=== PATIENT | female | born 1975 | race African-American/Black ===

== ENCOUNTER 2016-12-10 04:17 | Emergency (ER) | payer OTHER ==
[~2016-12-10] VITALS: Ht 167.6 cm; Wt 102.1 kg
[~2016-12-10 04:17] MED LIST: CILOXAN 0.3% O1 DROP BOTH EYES; GLUCOTROL XL10 MG ORAL; HYDROCHLOROTHIA25 MG ORAL; LISINOPRIL10 MG ORAL; METFORMIN HCL500 M1 ORAL; NORCO 5-325 TA1 EACH ORAL; NORVASC10 MG ORAL; POLYTRIM OP SOL10 ML OPHTHALM; ZITHROMAX250 MG ORAL
[2016-12-10 04:30] VITALS: BP 130/83
--- NOTE | 2016-12-10 04:51 | Emergency Room Report ---
History of Present Illness General Chief Complaint: Back Pain-No Injury Source: Patient Present Illness HPI Patient present with several different complaints mainly complaining of reflux and chest pain Complains of left scapular pain as well She reports looking at her symptoms online and was concerned about cardiac pathology and presents for further eval Denies any short of breath she has a mild cough denies any vomiting or diarrhea Denies any fall or trauma Chest pain is burning sensation 12/18 midsternal Allergies: Coded Allergies: MORPHINE (Verified Allergy, Unknown, 02/14/11) Patient History Past Medical History: see triage record Pertinent Family History: none Last Menstrual Period: Nov Reviewed Nursing Documentation: PMH: Agreed, PSxH: Agreed Nursing Documentation-PMH Hx Hypertension: Yes Hx Diabetes: Yes Hx Gastrointestinal Problems: Yes - PANCREATITIS Review of Systems All Other Systems: negative except mentioned in HPI Physical Exam Vital Signs Date Time Temp Pulse Resp B/P Pulse Ox O2 Delivery O2 Flow Rate FiO2 12/10/16 04:24 98.1 70 16 119/85 98 Room Air Sp02 EP Interpretation: reviewed, normal General Appearance: well appearing, no apparent distress Head: normocephalic, atraumatic Eyes: bilateral eye EOMI, bilateral eye PERRL ENT: hearing grossly normal, normal pharynx, TMs + canals normal, uvula midline Neck: full range of motion, supple, no meningismus, no bony tend Respiratory: lungs clear, normal breath sounds, no rhonchi, no respiratory distress, no retraction, no accessory muscle use Cardiovascular #1: normal peripheral pulses, regular rate, rhythm, no edema, no gallop, no JVD, no murmur Gastrointestinal: normal bowel sounds, non tender, soft, no mass, no organomegaly, non-distended, no guarding, no hernia, no pulsatile mass, no rebound Genitourinary: no CVA tenderness Musculoskeletal: normal inspection Neurologic: oriented x3, responsive, 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, motor strength/ tone normal, sensory intact Psychiatric: mood/affect normal Skin: normal color, no rash, warm/dry, palpation normal Lymphatic: normal inspection, no adenopathy Medical Decision Making Diagnostic Impression: Primary Impression: Back pain Additional Impression: Chest pain ER Course Patient is a fairly complex patient with multiple differential to consideration including but not limited to cardiac cardiopulmonary and vascular emergencies Patient's EKG shows chronic findings including atrial enlargement No obvious ST elevation Baseline blood work or appropriate patient's lipase was very minimal elevation She has had previous pancreatitis At this time with the current evaluation Patient also resting comfortably without any acute distress Upon reevaluation complaining mainly of left shoulder blade pain which has improved and therefore stable for close outpatient followup Labs Test 12/10/16 04:51 White Blood Count 7.7 K/UL (4.8-10.8) Red Blood Count 4.64 M/UL (4.20-5.40) Hemoglobin 13.8 G/DL (12.0-16.0) Hematocrit 41.4 % (37.0-47.0) Mean Corpuscular Volume 89 FL (80-99) Mean Corpuscular Hemoglobin 29.7 PG (27.0-31.0) Mean Corpuscular Hemoglobin Concent 33.3 G/DL (32.0-36.0) Red Cell Distribution Width 12.1 % (11.6-14.8) Platelet Count 261 K/UL (150-450) Mean Platelet Volume 7.3 FL (6.5-10.1) Neutrophils (%) (Auto) 57.0 % (45.0-75.0) Lymphocytes (%) (Auto) 31.7 % (20.0-45.0) Monocytes (%) (Auto) 7.9 % (1.0-10.0) Eosinophils (%) (Auto) 2.7 % (0.0-3.0) Basophils (%) (Auto) 0.7 % (0.0-2.0) Sodium Level 137 mEQ/L (135-145) Potassium Level 4.1 mEQ/L (3.4-4.9) Chloride Level 97 mEQ/L (98-107) Carbon Dioxide Level 26 mEQ/L (20-30) Anion Gap 14 (5-15) Blood Urea Nitrogen 10 mg/dL (7-23) Creatinine 0.7 mg/dL (0.5-0.9) Estimat Glomerular Filtration Rate > 60 mL/min (>60) Glucose Level 168 mg/dL (74-106) Calcium Level 9.0 mg/dL (8.6-10.2) Total Bilirubin 0.3 mg/dL (0.0-1.2) Aspartate Amino Transf (AST/SGOT) 19 U/L (5-40) Alanine Aminotransferase (ALT/SGPT) 24 U/L (3-33) Alkaline Phosphatase 62 U/L (35-104) Total Protein 7.2 g/dL (6.6-8.7) Albumin 4.1 g/dL (3.5-5.2) Globulin 3.1 g/dL Albumin/Globulin Ratio 1.3 (1.0-2.7) Lipase 69 U/L (< 60) EKG Diagnostic Results Rate: normal Rhythm: NSR ST Segments: other - Left atrial enlargement nonspecific ST changes Rhythm Strip Diag. Results EP Interpretation: yes Rate: 77 Rhythm: NSR, no PVC's, no ectopy Chest X-Ray Diagnostic Results EP Interpretation: Yes Findings: no consolidation, no effusion, no pneumothorax Number of Views: 1 Last Vital Signs Date Time Temp Pulse Resp B/P Pulse Ox O2 Delivery O2 Flow Rate FiO2 12/10/16 04:24 98.1 70 16 119/85 98 Room Air Status: improved Disposition: HOME, SELF-CARE Condition: Improved Additional Instructions: Patient is provided with the discharge instructions notified to follow up with primary doctor in the next 2-3 days otherwise return to the er with any worsening symptoms. Please note that this report is being documented using [employer] technology. This can lead to erroneous entry secondary to incorrect interpretation by the dictating instrument. PADILLA PATEL D.O. Dec 10, 2016 04:51
[2016-12-10 05:13] LABS: BASOPHILS % (AUTO) 0.7 % (0.0-2.0); EOSINOPHILS % (AUTO) 2.7 % (0.0-3.0); LYMPHOCYTES % (AUTO) 31.7 % (20.0-45.0); MEAN CORPUSCULAR HEMOGLOBIN 29.7 PG (27.0-31.0); MEAN CORPUSCULAR HGB CONC 33.3 G/DL (32.0-36.0); MEAN CORPUSCULAR VOLUME 89 FL (80-99); MEAN PLATELET VOLUME 7.3 FL (6.5-10.1); MONOCYTES % (AUTO) 7.9 % (1.0-10.0); PLATELET COUNT 261 K/UL (150-450); RED BLOOD COUNT 4.64 M/UL (4.20-5.40); RED CELL DISTRIBUTION WIDTH 12.1 % (11.6-14.8); WHITE BLOOD COUNT 7.7 K/UL (4.8-10.8)
[2016-12-10 05:29] LABS: ALANINE AMINOTRANSFERASE 24 U/L (3-33); ALBUMIN/GLOBULIN RATIO 1.3 (1.0-2.7); ANION GAP 14 (5-15); ASPARTATE AMINO TRANSFERASE 19 U/L (5-40); CARBON DIOXIDE 26 mEQ/L (20-30); CHLORIDE 97 mEQ/L (98-107); CREATININE 0.7 mg/dL (0.5-0.9); GLOMERULAR FILTRATION RATE > 60 mL/min (>60); HEMOLYSIS 3; LIPASE 69 U/L (< 60); POTASSIUM 4.1 mEQ/L (3.4-4.9); SODIUM 137 mEQ/L (135-145); TOTAL PROTEIN 7.2 g/dL (6.6-8.7)
[2016-12-10 06:25] VITALS: BP 133/83
--- NOTE | 2016-12-10 10:52 | Diagnostic Imaging Report ---
Indication: Chest Pain Comparison: 10/15/15 A single view chest radiograph was obtained. Findings: Cardiomediastinal appearance is within normal limits for age. Pulmonary vascularity is appropriate. The diaphragmatic contour is smooth and costophrenic angles are sharp. No pleural effusions are identified. The bones are unremarkable. Impression: No acute findings
--- NOTE | 2016-12-11 14:02 | Cardiology Report ---
APPROVED REPORT EKG Measurement Heart [id number] Normal sinus rhythm Possible Left atrial enlargement Incomplete right bundle branch block Borderline ECG
== END 2016-12-10 06:25 | disposition home or self-care (01) ==
LOC: EMR 04:40
DX: R07.89 Other chest pain (principal); M54.9 Dorsalgia, unspecified; I10 Essential (primary) hypertension; E11.9 Type 2 diabetes mellitus without complications; Z88.6 Allergy status to analgesic agent
CPT/HCPCS: 36415; 71010; 80053; 83690; 85025; 93005; 99283

== ENCOUNTER 2018-01-26 18:25 | Emergency (ER) | payer OTHER ==
[~2018-01-26] VITALS: Ht 167.6 cm; Wt 108.0 kg
[2018-01-26] MEDS ORDERED: JANUVIA100 MG ORAL (19:00)
[2018-01-26 19:20] VITALS: BP 115/76
[2018-01-26 19:27] LABS: APPEARANCE,URINE CLEAR; BILIRUBIN, URINE NEGATIVE (NEGATIVE); COLOR,URINE PALE YELLOW; GLUCOSE, URINE (UA) NEGATIVE (NEGATIVE); KETONES,URINE NEGATIVE (NEGATIVE); LEUKOCYTE ESTERASE ,URINE NEGATIVE (NEGATIVE); NITRITE,URINE NEGATIVE (NEGATIVE); PH,URINE 6 (4.5-8.0); PROTEIN,URINE NEGATIVE (NEGATIVE); UROBILINOGEN,URINE NORMAL MG/DL (0.0-1.0)
[2018-01-26 20:00] LABS: HEMATOCRIT 39.4 % (37.0-47.0); HEMOGLOBIN 13.5 G/DL (12.0-16.0); LYMPHOCYTES % (AUTO) 38.5 % (20.0-45.0); MEAN CORPUSCULAR VOLUME 88 FL (80-99); MONOCYTES % (AUTO) 7.8 % (1.0-10.0); NEUTROPHILS % (AUTO) 49.7 % (45.0-75.0); PLATELET COUNT 251 K/UL (150-450); RED BLOOD COUNT 4.46 M/UL (4.20-5.40); RED CELL DISTRIBUTION WIDTH 11.7 % (11.6-14.8); WHITE BLOOD COUNT 7.3 K/UL (4.8-10.8)
[2018-01-26 20:13] LABS: ANION GAP 8 mmol/L (5-15); BLOOD UREA NITROGEN 13 mg/dL (7-18); CALCIUM 9.3 MG/DL (8.5-10.1); CARBON DIOXIDE 26 MMOL/L (21-32); CHLORIDE 101 MMOL/L (98-107); CREATININE 0.8 MG/DL (0.55-1.30); POTASSIUM 3.7 MMOL/L (3.5-5.1); SODIUM 135 MMOL/L (136-145)
[2018-01-26 20:17] LABS: ALANINE AMINOTRANSFERASE 31 U/L (12-78); ALKALINE PHOSPHATASE 72 U/L (46-116); ASPARTATE AMINO TRANSFERASE 16 U/L (15-37); BILIRUBIN,TOTAL 0.2 MG/DL (0.2-1.0)
--- NOTE | 2018-01-26 22:02 | Emergency Room Report ---
History of Present Illness General Chief Complaint: General Complaint Source: Patient Present Illness HPI This patient has multiple complaints. 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 She states then she later felt pain in her upper back. He denies recent illness. She denies cough or congestion. She denies fever or chills. She denies nausea or vomiting. She states that she occasionally gets pain in her right lower abdomen. She states it comes and goes. She currently does not have any pain. She states her urine also has had an unusual odor. She has no dysuria or hematuria. She is concerned she may have a urinary tract infection. She denies abnormal vaginal discharge. She has an appointment with her primary care physician for a physical and for her diabetes in the next week. She has no other complaints. Allergies: Coded Allergies: MORPHINE (Verified Allergy, Unknown, 02/14/11) Patient History Past Medical History: see triage record, DM, other - pancreatitis Social History: Denies: smoking, alcohol use, drug use Last Menstrual Period: 01/21/18 Reviewed Nursing Documentation: PMH: Agreed; PSxH: Agreed Nursing Documentation-PMH Hx Hypertension: Yes Hx Diabetes: Yes - DM2 Hx Gastrointestinal Problems: Yes - PANCREATITIS Review of Systems All Other Systems: negative except mentioned in HPI Physical Exam Vital Signs Date Time Temp Pulse Resp B/P (MAP) Pulse Ox O2 Delivery O2 Flow Rate FiO2 01/26/18 18:54 98.5 72 18 147/87 95 Room Air 98.4 Sp02 EP Interpretation: reviewed, normal General Appearance: no apparent distress, alert, GCS 15, non-toxic Head: normocephalic, atraumatic Eyes: bilateral eye normal inspection, bilateral eye PERRL ENT: hearing grossly normal, normal pharynx, no angioedema, normal voice Neck: full range of motion, supple/symm/no masses Respiratory: chest non-tender, lungs clear, normal breath sounds, speaking full sentences Cardiovascular #1: regular rate, rhythm, no edema Gastrointestinal: normal bowel sounds, non tender, soft, non-distended, no guarding, no rebound Rectal: deferred Musculoskeletal: back normal, gait/station normal, normal range of motion, non- tender Neurologic: alert, oriented x3, responsive, motor strength/tone normal, sensory intact, speech normal Psychiatric: judgement/insight normal, memory normal, mood/affect normal, no suicidal/homicidal ideation Skin: normal color, no rash, warm/dry, well hydrated Medical Decision Making Diagnostic Impression: Primary Impression: Chest pain ER Course This patient has nonspecific chest pain. Given the length of symptoms, this workup is very reassuring with negative cardiac enzymes, normal EKG, and normal chest x-ray. The patient is low risk and his symptoms are atypical for acute coronary syndrome. I have very low suspicion for PE, aortic dissection or pneumothorax based on history/physical, laboratory and radiologic workup. The patient also complained of some intermittent right sided pelvic pain. Therefore , I obtained a pelvic ultrasound. There is no significant findings. See official report. No evidence of urinary tract infection on urinalysis. The patient's abdominal exam is benign. Overall this patient's evaluation is unremarkable. I did not identify an emergency medical condition. The patient was given close return precautions and followup instructions. Laboratory Tests Test 01/26/18 19:00 01/26/18 19:30 Urine Color Pale yellow Urine Appearance Clear Urine pH 6 (4.5-8.0) Urine Specific [place] 1.015 (1.005-1.035) Urine Protein Negative (NEGATIVE) Urine Glucose (UA) Negative (NEGATIVE) Urine Ketones Negative (NEGATIVE) Urine Occult Blood 2+ (NEGATIVE) H Urine Nitrite Negative (NEGATIVE) Urine Bilirubin Negative (NEGATIVE) Urine Urobilinogen Normal MG/DL (0.0-1.0) Urine Leukocyte Esterase Negative (NEGATIVE) Urine RBC 2-4 /HPF (0 - 2) H Urine WBC 0-2 /HPF (0 - 2) Urine Squamous Epithelial Cells Few /LPF (NONE/OCC) Urine Bacteria Few /HPF (NONE) Urine HCG, Qualitative Negative (NEGATIVE) White Blood Count 7.3 K/UL (4.8-10.8) Red Blood Count 4.46 M/UL (4.20-5.40) Hemoglobin 13.5 G/DL (12.0-16.0) Hematocrit 39.4 % (37.0-47.0) Mean Corpuscular Volume 88 FL (80-99) Mean Corpuscular Hemoglobin 30.2 PG (27.0-31.0) Mean Corpuscular Hemoglobin Concent 34.2 G/DL (32.0-36.0) Red Cell Distribution Width 11.7 % (11.6-14.8) Platelet Count 251 K/UL (150-450) Mean Platelet Volume 6.9 FL (6.5-10.1) Neutrophils (%) (Auto) 49.7 % (45.0-75.0) Lymphocytes (%) (Auto) 38.5 % (20.0-45.0) Monocytes (%) (Auto) 7.8 % (1.0-10.0) Eosinophils (%) (Auto) 3.0 % (0.0-3.0) Basophils (%) (Auto) 1.0 % (0.0-2.0) Sodium Level 135 MMOL/L (136-145) L Potassium Level 3.7 MMOL/L (3.5-5.1) Chloride Level 101 MMOL/L (98-107) Carbon Dioxide Level 26 MMOL/L (21-32) Anion Gap 8 mmol/L (5-15) Blood Urea Nitrogen 13 mg/dL (7-18) Creatinine 0.8 MG/DL (0.55-1.30) Estimate Glomerular Filtration Rate > 60 mL/min (>60) Glucose Level 180 MG/DL (74-106) H Calcium Level 9.3 MG/DL (8.5-10.1) Total Bilirubin 0.2 MG/DL (0.2-1.0) Aspartate Amino Transferase (AST) 16 U/L (15-37) Alanine Aminotransferase (ALT) 31 U/L (12-78) Alkaline Phosphatase 72 U/L (46-116) Troponin I 0.000 ng/mL (0.000-0.056) Total Protein 8.1 G/DL (6.4-8.2) Albumin 4.0 G/DL (3.4-5.0) Globulin 4.1 g/dL Albumin/Globulin Ratio 1.0 (1.0-2.7) Lipase 142 U/L (73-393) EKG Diagnostic Results Rate: normal Rhythm: NSR ST Segments: no acute changes Rhythm Strip Diag. Results EP Interpretation: yes Rate: 70's Rhythm: NSR, no PVC's, no ectopy Chest X-Ray Diagnostic Results Chest X-Ray Diagnostic Results : Chest X-Ray Ordered: Yes # of Views/Limited/Complete: 1 View Indication: Chest Pain EP Interpretation: Yes Interpretation: no consolidation, no effusion, no pneumothorax, no acute cardiopulmonary disease Impression: No acute disease Electronically Signed by: Abigail CT/MRI/US Diagnostic Results CT/MRI/US Diagnostic Results : Imaging Test Ordered: US Pelvis Impression Small ovarian cysts. See official report. Last Vital Signs Date Time Temp Pulse Resp B/P (MAP) Pulse Ox O2 Delivery O2 Flow Rate FiO2 01/26/18 19:20 98.0 76 18 115/76 98 Room Air 98.0 Status: improved Disposition: HOME, SELF-CARE Condition: Improved Referrals: [facility],REFERRING (PCP) ALLISON LARSON D.O. Jan 26, 2018 22:02
[2018-01-26 22:10] VITALS: BP 120/68
[2018-01-26 22:20] VITALS: BP 120/68
--- NOTE | 2018-01-27 08:49 | Diagnostic Imaging Report ---
Indication: Pelvic pain, negative urine test Technique: Transabdominal and transvaginal images Comparison: none Findings: Uterus measures 7.9 cm in length by 4 cm AP. The endometrium is not thickened. No myometrial abnormality. Nabothian cysts are seen in the cervix. Right ovary measures 3.1 cm in length. Left ovary measures 2 cm in length. No adnexal mass demonstrated. No free cul-de-sac fluid Impression: Cervical nabothian cysts. Otherwise unremarkable exam. Negative for adnexal mass
--- NOTE | 2018-01-27 09:06 | Diagnostic Imaging Report ---
Indication: Chest pain Technique: One view of the chest Comparison: 12/10/2016 Findings: Lungs and pleural spaces are clear. Heart size is normal. No significant interim change Impression: No acute process
--- NOTE | 2018-01-27 21:19 | Cardiology Report ---
APPROVED REPORT EKG Measurement Heart [id number] Normal sinus rhythm Incomplete right bundle branch block Borderline ECG
== END 2018-01-26 22:20 | disposition home or self-care (01) ==
LOC: EMR 19:05
DX: R07.9 Chest pain, unspecified (principal); E11.9 Type 2 diabetes mellitus without complications; I10 Essential (primary) hypertension; N88.8 Other specified noninflammatory disorders of cervix uteri; Z88.5 Allergy status to narcotic agent
CPT/HCPCS: 36415; 71045; 76856; 80053; 81003; 81025; 83690; 84484; 85025; 93005; 96374; 99284

== ENCOUNTER 2018-02-06 20:48 | Emergency (ER) | payer OTHER ==
[~2018-02-06] VITALS: Ht 167.6 cm; Wt 107.0 kg
[~2018-02-06 20:48] MED LIST changes: +JANUVIA100 MG ORAL
[2018-02-06] MEDS ORDERED: ASPIRIN81 MG ORAL (20:58)
--- NOTE | 2018-02-06 21:09 | Emergency Room Report ---
History of Present Illness General Chief Complaint: Chest Pain Source: Patient Present Illness HPI This is a 42-year-old female with history diabetes high blood pressure. She presents with chief complaint of chest pain. Has been on and off all day today. Multiple episodes. Lasting for a few minutes. Described as a squeezing sensation. No radiation. No diaphoresis. No nausea no vomiting. When pain come on his about 6-7 out of 10. Right now she has no pain. No previous workup on her heart like at stress test. Allergies: Coded Allergies: MORPHINE (Verified Allergy, Unknown, 02/14/11) Patient History Past Medical History: see triage record, old chart reviewed, DM, HTN Past Surgical History: none Pertinent Family History: none Social History: Denies: smoking Last Menstrual Period: 01/21/18 Now: No Immunizations: other Reviewed Nursing Documentation: PMH: Agreed; PSxH: Agreed Nursing Documentation-PMH Past Medical History: No History, Except For Hx Hypertension: Yes Hx Diabetes: Yes - DM2 Hx Gastrointestinal Problems: Yes - PANCREATITIS Review of Systems Eye: Denies: eye pain, blurred vision ENT: Denies: ear pain, nose congestion, throat swelling Respiratory: Denies: cough, shortness of breath Cardiovascular: Reports: chest pain; Denies: palpitations Gastrointestinal: Denies: abdominal pain, diarrhea, nausea, vomiting Musculoskeletal: Denies: back pain, joint pain Skin: Denies: rash Neurological: Denies: headache, numbness Endocrine: Denies: increased thirst, increased urine Hematologic/Lymphatic: Denies: easy bruising All Other Systems: negative except mentioned in HPI Physical Exam Vital Signs Date Time Temp Pulse Resp B/P (MAP) Pulse Ox O2 Delivery O2 Flow Rate FiO2 02/06/18 20:53 98.2 84 16 155/88 99 Room Air 98.2 vitals with high blood pressure Sp02 EP Interpretation: reviewed, normal General Appearance: well appearing, no apparent distress, alert, obese Head: normocephalic, atraumatic Eyes: bilateral eye PERRL, bilateral eye EOMI ENT: hearing grossly normal, normal pharynx Neck: full range of motion, supple, no meningismus Respiratory: chest non-tender, lungs clear, normal breath sounds Cardiovascular #1: regular rate, rhythm, no murmur Gastrointestinal: normal bowel sounds, non tender, no mass, no organomegaly, no bruit, non-distended Musculoskeletal: back normal, gait/station normal, normal range of motion Psychiatric: mood/affect normal Skin: warm/dry Medical Decision Making Diagnostic Impression: Primary Impression: Chest pain Qualified Codes: R07.9 - Chest pain, unspecified Additional Impressions: Hyperglycemia due to type 2 diabetes mellitus Qualified Codes: E11.65 - Type 2 diabetes mellitus with hyperglycemia Obesity (BMI 30-39.9) ER Course Patient presents with chest pain. Atypical in nature but she has multiple risk factors with her obesity, high blood pressure and uncontrolled diabetes. She is pain-free here. No evidence of STEMI, PE, dissection to name a few. Patient is stable for transfer to [facility]. I discussed the case with Dr. Dorman who accepted pt for transfer. Laboratory Tests Test 02/06/18 21:15 02/06/18 22:05 Urine Color Pale yellow Urine Appearance Clear Urine pH 6.5 (4.5-8.0) Urine Specific [place] 1.015 (1.005-1.035) Urine Protein Negative (NEGATIVE) Urine Glucose (UA) Negative (NEGATIVE) Urine Ketones Negative (NEGATIVE) Urine Occult Blood Negative (NEGATIVE) Urine Nitrite Negative (NEGATIVE) Urine Bilirubin Negative (NEGATIVE) Urine Urobilinogen Normal MG/DL (0.0-1.0) Urine Leukocyte Esterase Negative (NEGATIVE) White Blood Count 8.4 K/UL (4.8-10.8) Red Blood Count 4.60 M/UL (4.20-5.40) Hemoglobin 13.6 G/DL (12.0-16.0) Hematocrit 40.0 % (37.0-47.0) Mean Corpuscular Volume 87 FL (80-99) Mean Corpuscular Hemoglobin 29.6 PG (27.0-31.0) Mean Corpuscular Hemoglobin Concent 34.0 G/DL (32.0-36.0) Red Cell Distribution Width 12.0 % (11.6-14.8) Platelet Count 281 K/UL (150-450) Mean Platelet Volume 6.9 FL (6.5-10.1) Neutrophils (%) (Auto) 55.8 % (45.0-75.0) Lymphocytes (%) (Auto) 33.2 % (20.0-45.0) Monocytes (%) (Auto) 6.8 % (1.0-10.0) Eosinophils (%) (Auto) 3.5 % (0.0-3.0) H Basophils (%) (Auto) 0.8 % (0.0-2.0) Sodium Level 136 MMOL/L (136-145) Potassium Level 3.7 MMOL/L (3.5-5.1) Chloride Level 100 MMOL/L (98-107) Carbon Dioxide Level 32 MMOL/L (21-32) Anion Gap 4 mmol/L (5-15) L Blood Urea Nitrogen 10 mg/dL (7-18) Creatinine 0.9 MG/DL (0.55-1.30) Estimat Glomerular Filtration Rate > 60 mL/min (>60) Glucose Level 223 MG/DL (74-106) H Calcium Level 9.5 MG/DL (8.5-10.1) Total Creatine Kinase 107 U/L (26-308) Creatine Kinase MB 0.7 NG/ML (0.0-3.6) Creatine Kinase MB Relative Index 0.6 Troponin I 0.000 ng/mL (0.000-0.056) Lab Results Impression labs with hyperglycemia EKG Diagnostic Results Rate: normal Rhythm: NSR ST Segments: no acute changes ASA given to the pt in ED: Yes Rhythm Strip Diag. Results Rhythm Strip Time: 21:17 EP Interpretation: yes Rate: 70 Rhythm: NSR, no PVC's, no ectopy Chest X-Ray Diagnostic Results Chest X-Ray Diagnostic Results : Chest X-Ray Ordered: Yes # of Views/Limited/Complete: 1 View Indication: Chest Pain EP Interpretation: Yes Interpretation: no consolidation, no effusion, no pneumothorax, no acute cardiopulmonary disease Impression: No acute disease Electronically Signed by: Joni Springer MD Last Vital Signs Date Time Temp Pulse Resp B/P (MAP) Pulse Ox O2 Delivery O2 Flow Rate FiO2 02/06/18 20:53 98.2 84 16 155/88 99 Room Air 98.2 Status: improved Disposition: XFER SHT-TRM HOSP Condition: Stable Referrals: NON PHYSICIAN (PCP) JONI SPRINGER M.D. Feb 06, 2018 21:09
[2018-02-06] MEDS ORDERED: Aspirin Baby 81mg ORAL ONE (21:15)
[2018-02-06 22:20] LABS: APPEARANCE,URINE CLEAR; BILIRUBIN, URINE NEGATIVE (NEGATIVE); COLOR,URINE PALE YELLOW; GLUCOSE, URINE (UA) NEGATIVE (NEGATIVE); KETONES,URINE NEGATIVE (NEGATIVE); LEUKOCYTE ESTERASE ,URINE NEGATIVE (NEGATIVE); NITRITE,URINE NEGATIVE (NEGATIVE); PH,URINE 6.5 (4.5-8.0); PROTEIN,URINE NEGATIVE (NEGATIVE); UROBILINOGEN,URINE NORMAL MG/DL (0.0-1.0)
[2018-02-06 22:22] LABS: BASOPHILS % (AUTO) 0.8 % (0.0-2.0); EOSINOPHILS % (AUTO) 3.5 % (0.0-3.0); HEMOGLOBIN 13.6 G/DL (12.0-16.0); LYMPHOCYTES % (AUTO) 33.2 % (20.0-45.0); MEAN CORPUSCULAR VOLUME 87 FL (80-99); MONOCYTES % (AUTO) 6.8 % (1.0-10.0); NEUTROPHILS % (AUTO) 55.8 % (45.0-75.0); PLATELET COUNT 281 K/UL (150-450); WHITE BLOOD COUNT 8.4 K/UL (4.8-10.8)
[2018-02-06 22:39] LABS: ANION GAP 4 mmol/L (5-15); BLOOD UREA NITROGEN 10 mg/dL (7-18); CALCIUM 9.5 MG/DL (8.5-10.1); CARBON DIOXIDE 32 MMOL/L (21-32); CHLORIDE 100 MMOL/L (98-107); CREATININE 0.9 MG/DL (0.55-1.30); POTASSIUM 3.7 MMOL/L (3.5-5.1); SODIUM 136 MMOL/L (136-145)
[2018-02-06 22:53] LABS: CKMB 0.7 NG/ML (0.0-3.6); CREATINE KINASE 107 U/L (26-308)
[2018-02-06 23:39] VITALS: BP 119/64
[2018-02-07 00:20] VITALS: BP 135/55
[2018-02-07 00:21] VITALS: BP 135/55
--- NOTE | 2018-02-07 09:41 | Diagnostic Imaging Report ---
Indication: Chest pain Technique: XRAY Chest 1v Comparison: 01/26/2018 Findings: Limited exam with low lung volumes. This artifactually exaggerate heart size and vascular markings. Heart size and mediastinal contours are stable. There is no definite focal airspace consolidation, pleural effusion or pneumothorax. No acute osseous abnormality seen. There are degenerative changes of the spine. IMPRESSION: No definite radiographic evidence of acute cardiopulmonary disease. Low lung volumes artifactually exaggerate heart size and vascular markings. Allowing for differences in patient positioning/inspiration, there has been no significant interval change from the prior exam of 01/26/2018.
== END 2018-02-07 00:21 | disposition short-term general hospital (02) ==
LOC: EMR 21:00
DX: R07.89 Other chest pain (principal); E11.65 Type 2 diabetes mellitus with hyperglycemia; Z88.5 Allergy status to narcotic agent; E66.9 Obesity, unspecified; Z68.38 Body mass index [BMI] 38.0-38.9, adult
CPT/HCPCS: 36415; 71045; 80048; 81003; 82550; 82553; 82962; 84484; 85025; 93005; 99285

== ENCOUNTER 2019-01-19 17:31 | Emergency (ER) | payer OTHER ==
[~2019-01-19] VITALS: Ht 167.6 cm; Wt 111.1 kg
[~2019-01-19 17:31] MED LIST changes: +ASPIRIN81 MG ORAL
[2019-01-19 17:35] VITALS: BP 126/82
--- NOTE | 2019-01-19 17:40 | NUR ---
ED Nurse Note: PATIENT WALKED INTO ED C/O HEADACHE SINCE WEDNESDAY PATIENT DESCRIBES IT 10/10 THROBBING PAIN MAINLY ON HER ANTERIOR HEAD AND TEMPORAL SIDE. PATIENT WAS NAUSEATED ON WEDNESDAY, BUT DENIES ANY NAUSEA AT THIS TIME. PATIENT IS ALERT AWAKE X4 AMBULATORY, BREATHING EVEN AND UNLABORED. BY THE BEDSIDE. PATIENT REPORTS TAKING TYLENOL TOTAL OF 650MG BEFORE COMING TO ED.
[2019-01-19] MEDS ORDERED: Ketorolac 30mg Inj IM ONE (17:45)
--- NOTE | 2019-01-19 17:52 | NUR ---
ED Nurse Note: PATIENT STATED THAT SHE WILL TAKE THE PAIN MEDICATION LATER.
--- NOTE | 2019-01-19 17:56 | NUR ---
ED Nurse Note: UA SENT TO LAB
[2019-01-19 18:11] LABS: APPEARANCE,URINE CLEAR; BILIRUBIN, URINE NEGATIVE (NEGATIVE); COLOR,URINE PALE YELLOW; GLUCOSE, URINE (UA) NEGATIVE (NEGATIVE); KETONES,URINE 2+ (NEGATIVE); LEUKOCYTE ESTERASE ,URINE NEGATIVE (NEGATIVE); NITRITE,URINE NEGATIVE (NEGATIVE); PH,URINE 6 (4.5-8.0); PROTEIN,URINE NEGATIVE (NEGATIVE); UROBILINOGEN,URINE NORMAL MG/DL (0.0-1.0)
--- NOTE | 2019-01-19 18:49 | Emergency Room Report ---
History of Present Illness General Chief Complaint: Headache Source: Patient Present Illness HPI 43 YO female presents to the emergency department complaining of 9 out of 10 in severity progressive onset SMITH radiates across the front of the forehead and behind both eyes with throbbing pain on the left side of the head. some photophobia, no recent illness, fevers or chills. patient reports some improvement after taking Tylenol earlier today however her symptoms did not completely resolve and they have returned back to higher pain severity rating. Denies trauma, fall, nausea, vomiting, dizziness, palpitations, visual changes or tinnitus. Patient does report 2 episodes of vertigo earlier this week. Patient states mother had a history of aneurysms. Denies weakness difficulty with speech or swallowing. Denies CP, Palpitations, LOC, AMS, dizziness, Changes in Vision, Sensation, paresthesias, or a sudden severe headache. Hx of Dm and HTN. Allergies: Coded Allergies: MORPHINE (Verified Allergy, Unknown, 02/14/11) Patient History Past Medical History: see triage record Past Surgical History: none Pertinent Family History: none Now: No Reviewed Nursing Documentation: PMH: Agreed; PSxH: Agreed Nursing Documentation-PMH Past Medical History: No History, Except For Hx Hypertension: Yes Hx Diabetes: Yes - DM2 Hx Gastrointestinal Problems: Yes - PANCREATITIS Review of Systems All Other Systems: negative except mentioned in HPI Physical Exam Vital Signs Date Time Temp Pulse Resp B/P (MAP) Pulse Ox O2 Delivery O2 Flow Rate FiO2 01/19/19 17:35 98.4 77 18 126/82 98 Room Air Sp02 EP Interpretation: reviewed, normal General Appearance: alert, GCS 15, non-toxic, mild distress Head: normocephalic, atraumatic Eyes: bilateral eye normal inspection, bilateral eye PERRL, bilateral eye EOMI , bilateral eye photophobia ENT: hearing grossly normal, normal voice, TMs + canals normal, dry mucus membranes Neck: full range of motion, no meningismus, no carotid bruits Respiratory: chest non-tender, lungs clear, normal breath sounds, speaking full sentences Cardiovascular #1: regular rate, rhythm Genitourinary: no CVA tenderness Musculoskeletal: gait/station normal, normal range of motion, non-tender Neurologic: alert, oriented x3, responsive, motor strength/tone normal, sensory intact, speech normal, other - no facial droop, no nystagmus, grossly normal Psychiatric: judgement/insight normal Skin: normal color, no rash, warm/dry, well hydrated Medical Decision Making PA Attestation Dr. Redd is my supervising Physician whom patient management has been discussed with. Diagnostic Impression: Primary Impression: Headache Qualified Codes: R51 - Headache ER Course 43 YO female presents to the emergency department complaining of 9 out of 10 in severity progressive onset SMITH radiates across the front of the forehead and behind both eyes with throbbing pain on the left side of the head. some photophobia, no recent illness, fevers or chills. patient reports some improvement after taking Tylenol earlier today however her symptoms did not completely resolve and they have returned back to higher pain severity rating. Denies trauma, fall, nausea, vomiting, dizziness, palpitations, visual changes or tinnitus. Patient does report 2 episodes of vertigo earlier this week. Patient states mother had a history of aneurysms. Denies weakness difficulty with speech or swallowing. Denies CP, Palpitations, LOC, AMS, dizziness, Changes in Vision, Sensation, paresthesias, or a sudden severe headache. Hx of Dm and HTN. -- has hx of Dm, and HTN Ddx considered but are not limited to migraine, SAH, Pseudomotor Cerebri,, Mass lesion, Cluster SMITH, Tension SMITH, Post lumbar puncture SMITH. Vital signs: are WNL, pt. is afebrile H&PE are most consistent with migraine headache or tension headache. No focal neurological deficits, or alterations in mental status, non-toxic in appearance. ORDERS: - UA: unremarkable -hcg: negative ED INTERVENTIONS: - Reglan PO -Toradol IM -Fioricet PO pt. reports pain reduced to 3/10 in severity. -I do not identify an emergent condition at this time. With current presentation , pt. is stable for close outpatient follow up and conservative treatment. D/ w pt. to return promptly to ED with worsening or new symptoms.- Pt. verbalizes' understanding and agreement with proposed treatment plan.proposed treatment plan. DISCHARGE: At this time pt. is stable for d/c to home. Will provide printed patient care instructions, and any necessary prescriptions. Care plan and follow up instructions have been discussed with the patient prior to discharge. Labs Test 01/19/19 17:30 Urine Color Pale yellow Urine Appearance Clear Urine pH 6 (4.5-8.0) Urine Specific [place] 1.010 (1.005-1.035) Urine Protein Negative (NEGATIVE) Urine Glucose (UA) Negative (NEGATIVE) Urine Ketones 2+ (NEGATIVE) Urine Blood Negative (NEGATIVE) Urine Nitrite Negative (NEGATIVE) Urine Bilirubin Negative (NEGATIVE) Urine Urobilinogen Normal MG/DL (0.0-1.0) Urine Leukocyte Esterase Negative (NEGATIVE) Urine HCG, Qualitative Negative (NEGATIVE) Last Vital Signs Date Time Temp Pulse Resp B/P (MAP) Pulse Ox O2 Delivery O2 Flow Rate FiO2 01/19/19 17:35 98.4 77 18 126/82 98 Room Air Status: improved Disposition: HOME, SELF-CARE Condition: Stable Scripts Acetamin/Butalbital/Caffeine* (FIORICET*) 1 Ea Tab 1 TAB ORAL Q6H, #15 TAB 0 Refills Prov: Sissy Osborn 01/19/19 Referrals: [facility],REFERRING (PCP) Patient Instructions: Migraine Headache, Tension Headache Additional Instructions: Take medications as directed. Follow up with a Primary Care Provider in 3-5 days For a referral to have NEUROLOGIST Evaluation, even if your symptoms have resolved. --Please review list of primary care clinics, if you do not already have a primary care provider Return sooner to ED if new symptoms occur, or current symptoms become worse. - Please note that this Emergency Department Report was dictated using MMITslot editor technology software, occasionally this can lead to erroneous entry secondary to interpretation by the dictation equipment. Sissy Osborn Jan 19, 2019 18:49
--- NOTE | 2019-01-19 19:09 | NUR ---
HAND-OFF: Report given to RAMIREZ BOONE .
[2019-01-19] MEDS ORDERED: FIORICET1 EA ORAL (20:27)
[2019-01-19 20:50] VITALS: BP 126/82
--- NOTE | 2019-01-19 20:51 | NUR ---
ED Nurse Note: Pt cleared by health care Provider for discharge. DC instructions/prescription was given and explained to pt and verbalized understanding of teachings. All medical deviecs such as ID band removed. Pt is AAO x4, ambulatory and left with all personal belongings.
[2019-01-20] MEDS ORDERED: CLARITIN10 M2 ORAL (17:58)
[2019-01-20] MEDS ORDERED: REGLAN10 MG ORAL (18:03)
== END 2019-01-19 20:50 | disposition home or self-care (01) ==
LOC: EMR 18:00
DX: R51 Headache (principal); I10 Essential (primary) hypertension; E11.9 Type 2 diabetes mellitus without complications
CPT/HCPCS: 81003; 81025; 96372; 99283; J1885